=== PATIENT | male | born 1990 | race Caucasian/White ===

== ENCOUNTER 2022-10-30 18:16 | Emergency (ER) | payer SELFPAY ==
[2022-10-30] MEDS ORDERED: HYDROCODONE/APAP 5/325 MG TAB ONE (18:54)
[2022-10-30] MEDS ORDERED: DIAZEPAM 2 MG TABLET ONE (18:54)
--- NOTE | 2022-10-30 21:41 | RAD REPORT ---
EXAM DESCRIPTION: RAD - Lumbar Spine 3 Views - 10/30/2022 7:58 pm CLINICAL HISTORY: SMASH INJURY COMPARISON: No comparisons TECHNIQUE: Lumbar spine, 3 views. FINDINGS: Lumbar vertebral bodies are normal in height and alignment. No fracture or acute bony proc ess seen. No disc space narrowing. Mild facet degenerative changes. No other significant findings. IMPRESSION: No acute osseous abnormality mild facet degenerative changes.
--- NOTE | 2022-10-30 21:42 | RAD REPORT ---
EXAM DESCRIPTION: RAD - Hip Left 2 View - 10/30/2022 7:58 pm CLINICAL HISTORY: PAIN COMPARISON: No comparisons TECHNIQUE: Left hip, AP and frogleg views of the left hip. FINDINGS: There is no fracture or dislocation. No acute or destructive bony process seen. IMPRESSION: No acute findings of the left hip.
[2022-10-30] MEDS ORDERED: MORPHINE 4 MG/ML SYR ONE (22:12)
--- NOTE | 2022-10-30 22:51 | EDPHYS ---
Physician Documentation [facility] Name: Juan Thomas Age: 32 yrs Sex: Male : 1990 Arrival Date: 10/30/2022 Time: 18:16 Bed 20 Private MD: ED Physician Wing Jimenez HPI: 10/30 18:41 This 32 yrs old Male presents to ER via Ambulatory with complaints of Fall Injury, Leg snw Pain, Hip Pain. 18:41 Details of fall: The patient fell from an upright position, while running. Onset: The snw symptoms/episode began/occurred suddenly, at 12:00. Associated injuries: The patient sustained left hip, contusion, decreased range of motion, painful injury. The patient has not experienced similar symptoms in the past. The patient has not recently seen a physician, and does not have an established primary care provider. Historical: - Allergies: 18:40 No Known Allergies; nj1 - PMHx: 18:40 None; nj1 - PSHx: 18:40 None; nj1 - Immunization history:: Client reports receiving the 2nd dose of the Covid vaccine. - Social history:: Smoking status: Patient reports the use of cigarette tobacco products, smokes one pack cigarettes per day. ROS: 18:40 Constitutional: Negative for fever, chills, and weight loss, Eyes: Negative for injury, snw pain, redness, and discharge, ENT: Negative for injury, pain, and discharge, Neck: Negative for injury, pain, and swelling, Cardiovascular: Negative for chest pain, palpitations, and edema, Respiratory: Negative for shortness of breath, cough, wheezing, and pleuritic chest pain, Abdomen/GI: Negative for abdominal pain, nausea, vomiting, diarrhea, and constipation, Back: Negative for injury and pain, : Negative for injury, bleeding, discharge, and swelling, Skin: Negative for injury, rash, and discoloration, Neuro: Negative for headache, weakness, numbness, tingling, and seizure, Psych: Negative for depression, anxiety, suicide ideation, homicidal ideation, and hallucinations. 18:40 MS/extremity: Positive for injury or acute deformity, decreased range of motion, pain, tenderness, of the left hip. Exam: 18:39 Constitutional: This is a well developed, well nourished patient who is awake, alert, snw and in no acute distress. Head/Face: Normocephalic, atraumatic. Eyes: Pupils equal round and reactive to light, extra-ocular motions intact. Lids and lashes normal. Conjunctiva and sclera are non-icteric and not injected. Cornea within normal limits. Periorbital areas with no swelling, redness, or edema. ENT: Nares patent. No nasal discharge, no septal abnormalities noted. Tympanic membranes are normal and external auditory canals are clear. Oropharynx with no redness, swelling, or masses, exudates, or evidence of obstruction, uvula midline. Mucous membranes moist. Neck: Trachea midline, no thyromegaly or masses palpated, and no cervical lymphadenopathy. Supple, full range of motion without nuchal rigidity, or vertebral point tenderness. No Meningismus. Chest/axilla: Normal chest wall appearance and motion. Nontender with no deformity. No lesions are appreciated. Cardiovascular: Regular rate and rhythm with a normal S1 and S2. No gallops, murmurs, or rubs. Normal PMI, no JVD. No pulse deficits. Respiratory: Lungs have equal breath sounds bilaterally, clear to auscultation and percussion. No rales, rhonchi or wheezes noted. No increased work of breathing, no retractions or nasal flaring. Abdomen/GI: Soft, non-tender, with normal bowel sounds. No distension or tympany. No guarding or rebound. No evidence of tenderness throughout. Back: No spinal tenderness. No costovertebral tenderness. Full range of motion. Skin: Warm, dry with normal turgor. Normal color with no rashes, no lesions, and no evidence of cellulitis. Neuro: Awake and alert, GCS 15, oriented to person, place, time, and situation. Cranial nerves II-XII grossly intact. Motor strength 5/5 in all extremities. Sensory grossly intact. Cerebellar exam normal. Normal gait. Psych: Awake, alert, with orientation to person, place and time. Behavior, mood, and affect are within normal limits. 18:39 Musculoskeletal/extremity: Extremities: grossly normal except: noted in the left hip: decreased ROM, pain, ROM: limited active range of motion due to pain, left hip, limited passive range of motion due to pain, Circulation is intact in all extremities. Sensation intact. Vital Signs: 18:37 BP 142 / 112; Pulse 124; Resp 18; Temp 98.7; Pulse Ox 100% ; Weight 63.5 kg; Height 5 nj1 ft. 8 in. ; Pain 8/10; 21:11 BP 153 / 98; Pulse 100; Resp 20; Pulse Ox 99% ; ad6 22:00 BP 130 / 95; Pulse 93; Resp 20; Pulse Ox 100% ; ad6 23:00 BP 139 / 91; Pulse 87; Resp 19; Pulse Ox 98% ; ad6 18:37 Body Mass Index 21.29 (63.50 kg, 172.72 cm) nj1 18:37 Pain Scale: Adult nj1 MDM: 18:38 Patient medically screened. snw 10/31 08:17 Differential diagnosis: abrasion, contusion, fracture, sprain, strain. Data reviewed: snw vital signs, nurses notes, radiologic studies. I considered the following discharge prescriptions or medication management in the emergency department Medications were administered in the Emergency Department. See MAR. Counseling: I had a detailed discussion with the patient and/or guardian regarding the historical points, exam findings, and any diagnostic results supporting the discharge/admit diagnosis, the presence of at least one elevated blood pressure reading (>120/80) during this emergency department visit, radiology results, the need for outpatient follow up, for definitive care, to return to the emergency department if symptoms worsen or persist or if there are any questions or concerns that arise at home. Special discussion: I have referred the patient to see his PCP for further evaluation of high blood pressure. Based on the history and exam findings, there is no indication for further emergent testing or inpatient evaluation. I discussed with the patient/guardian the need to see the orthopedic surgeon for further evaluation of the symptoms. I discussed with the patient/guardian the need to see the primary care provider for further evaluation of the symptoms. 10/30 18:39 Order name: XRAY Hip LEFT 2 view; Complete Time: 22:25 snw 10/30 22:25 Interpretation: Report reviewed. cp 10/30 18:39 Order name: Lumbar Spine (3 Views) XRAY; Complete Time: 22:25 snw 10/30 20:14 Order name: Recheck VS; Complete Time: 21:33 snw Administered Medications: 10/30 18:47 Drug: HYDROcodone-acetaminophen PO 5 mg-325 mg 1 tabs Route: PO; nj1 18:47 Drug: Diazepam PO 2 mg Route: PO; nj1 22:12 Drug: morphine IM 4 mg Route: IM; Site: right deltoid; ad6 23:22 Drug: Lidoderm Topical Patch 5 % (700 mg/patch) 1 patches Route: Topical; Site: ad6 affected area; Disposition Summary: 10/30/22 22:50 Discharge Ordered Location: Home cp Condition: Stable cp Diagnosis - Fall on same level from slipping, tripping and stumbling with subsequent striking cp against object - Other bursitis of hip, left hip cp - Low back pain cp Followup: snw - With: Emergency Department - When: As needed - Reason: Worsening of condition Followup: snw - With: Private Physician - When: 2 - 3 days - Reason: Recheck today's complaints, Continuance of care, Re-evaluation by your physician Discharge Instructions: - Discharge Summary Sheet snw - Hip Bursitis snw - Fall Prevention in the Home, Adult snw - Heat Therapy snw - Acute Back Pain, Adult cp - Form - Excuse from Work, School, or Physical Activity cp Forms: - Medication Reconciliation Form cp - Thank You Letter cp - Antibiotic Education cp - Prescription Opioid Use cp - Patient Portal Instructions cp - Leadership Thank You Letter cp Prescriptions: - Cyclobenzaprine 10 mg Oral Tablet - take 1 tablet by ORAL route every 8 hours As needed; 30 tablet; Refills: 0, cp Product Selection Permitted - Diclofenac Sodium 75 mg Oral Tablet Sustained Release - take 1 tablet by ORAL route 2 times per day; 30 tablet; Refills: 0, Product cp Selection Permitted Signatures: Dispatcher [employer] Chichi Sim FNP-C FNP-Yossiw Garry Torrez PA PA cp Tashia Martinez, RN RN ad6 Luann Alejandra RN RN nj1
--- NOTE | 2022-10-30 22:51 | ER ---
Nurse's Notes [facility] Name: Juan Thomas Age: 32 yrs Sex: Male : 1990 Arrival Date: 10/30/2022 Time: 18:16 Bed 20 Private MD: Diagnosis: Fall on same level from slipping, tripping and stumbling with subsequent striking against object;Other bursitis of hip, left hip;Low back pain Presentation: 10/30 18:37 Chief complaint: [place]: [place]. Left hip/thigh nj1 pain. Coronavirus screen: Vaccine status: Patient reports receiving the 2nd dose of the covid vaccine. Ebola Screen: Patient denies travel to an Ebola-affected area in the 21 days before illness onset. Initial Sepsis Screen: Does the patient meet any 2 criteria? HR > 90 bpm. No. Patient's initial sepsis screen is negative. Does the patient have a suspected source of infection? No. Patient's initial sepsis screen is negative. Risk Assessment: Do you want to hurt yourself or someone else? Patient reports no desire to harm self or others. Onset of symptoms was October 30, 2022. 18:37 Method Of Arrival: Ambulatory [facility] 18:37 Acuity: RUSH 3 nj1 Historical: - Allergies: 18:40 No Known Allergies; nj1 - PMHx: 18:40 None; nj1 - PSHx: 18:40 None; nj1 - Immunization history:: Client reports receiving the 2nd dose of the Covid vaccine. - Social history:: Smoking status: Patient reports the use of cigarette tobacco products, smokes one pack cigarettes per day. Assessment: 21:15 General: Appears distressed, Behavior is cooperative, agitated, anxious, restless, ad6 Reports. Pain: Pain currently is 9 out of 10 on a pain scale. Quality of pain is described as sharp. Neuro: No deficits noted. Level of Consciousness is awake, alert, obeys commands, Oriented to person, place, time, situation. Cardiovascular: Pulses are all present. are 4+ in right radial artery, right dorsalis pedis artery, left radial artery and left dorsalis pedis artery. Respiratory: No deficits noted. Airway is patent Trachea midline Respiratory effort is even, unlabored. GI: No signs and/or symptoms were reported involving the gastrointestinal system. : No signs and/or symptoms were reported regarding the genitourinary system. Derm: Skin is intact. Musculoskeletal: Reports pain in left upper thigh. Injury Description: swelling to left upper thigh from fall. 22:15 Reassessment: No changes from previously documented assessment. Patient and/or family ad6 updated on plan of care and expected duration. Pain level reassessed. Patient is alert, oriented x 3, equal unlabored respirations, skin warm/dry/pink. pain medication given at this time. Reassessment:. 23:20 Reassessment: Patient and/or family updated on plan of care and expected duration. Pain ad6 level reassessed. Patient is alert, oriented x 3, equal unlabored respirations, skin warm/dry/pink. Vital Signs: 18:37 BP 142 / 112; Pulse 124; Resp 18; Temp 98.7; Pulse Ox 100% ; Weight 63.5 kg; Height 5 nj1 ft. 8 in. ; Pain 8/10; 21:11 BP 153 / 98; Pulse 100; Resp 20; Pulse Ox 99% ; ad6 22:00 BP 130 / 95; Pulse 93; Resp 20; Pulse Ox 100% ; ad6 23:00 BP 139 / 91; Pulse 87; Resp 19; Pulse Ox 98% ; ad6 18:37 Body Mass Index 21.29 (63.50 kg, 172.72 cm) nj1 18:37 Pain Scale: Adult [facility] ED Course: 18:17 Patient arrived in ED. im 18:26 Chichi Leiva FNP-C is PHCP. snw 18:26 Wing Jimenez MD is Attending Physician. snw 18:40 Triage completed. nj1 18:40 Arm band placed on right wrist. nj1 19:59 XRAY Hip LEFT 2 view In Process Unspecified. EDMS 19:59 Lumbar Spine (3 Views) XRAY In Process Unspecified. EDMS 21:36 PHCP role handed off by Chichi Leiva FNP-C cp 21:36 Garry Torrez PA is PHCP. cp Administered Medications: 18:47 Drug: HYDROcodone-acetaminophen PO 5 mg-325 mg 1 tabs Route: PO; nj1 18:47 Drug: Diazepam PO 2 mg Route: PO; nj1 22:12 Drug: morphine IM 4 mg Route: IM; Site: right deltoid; ad6 23:22 Drug: Lidoderm Topical Patch 5 % (700 mg/patch) 1 patches Route: Topical; Site: ad6 affected area; Outcome: 22:50 Discharge ordered by . alana 23:48 Patient left the ED. ad6 Signatures: Dispatcher [employer] EDMS Chichi Leiva FNP-C INFO SPECIALIST-Csnw Garry Torrez PA PA cp Del Toro, Anna, RN RN ad6 Luann Alejandra RN RN nj1 Vianca Montanez Corrections: (The following items were deleted from the chart) 23:35 23:27 Injury Description: swelling to left upper thigh from fall ad6 ad6 23:36 23:27 General: Appears distressed, Behavior is cooperative, agitated, anxious, ad6 restless, Reports ad6 23:36 23:27 Derm: Skin is intact, ad6 ad6 23:37 23:27 Neuro: No deficits noted. Level of Consciousness is awake, alert, obeys commands, ad6 Oriented to person, place, time, situation, ad6 23:39 23:27 Pain: Pain currently is 9 out of 10 on a pain scale. Quality of pain is described ad6 as sharp, ad6 23:39 23:27 Cardiovascular: Pulses are all present. are 4+ in right radial artery, right ad6 dorsalis pedis artery, left radial artery and left dorsalis pedis artery ad6 23:39 23:27 Respiratory: No deficits noted. Airway is patent Trachea midline Respiratory ad6 effort is even, unlabored, ad6 23:39 23:27 GI: No signs and/or symptoms were reported involving the gastrointestinal system. ad6 ad6 23:39 23:27 : No signs and/or symptoms were reported regarding the genitourinary system. ad6ad6 23:39 23:27 Musculoskeletal: Reports pain in left upper thigh ad6 ad6 23:39 23:27 Injury Description: swelling to left upper thigh from fall ad6 ad6 23:39 23:27 Derm: Skin is intact, ad6 ad6 23:39 23:27 General: Appears distressed, Behavior is cooperative, agitated, anxious, ad6 restless, Reports ad6 23:39 23:27 Neuro: No deficits noted. Level of Consciousness is awake, alert, obeys commands, ad6 Oriented to person, place, time, situation, ad6
[2022-10-30] MEDS ORDERED: LIDOCAINE 4% PATCH ONE (23:23)
[2022-10-30 23:53] VITALS: TEMP 98.7
[2022-10-30 23:58] VITALS: BP 139/91; O2SAT 98
== END 2022-10-30 23:48 | disposition home or self-care (01) ==
LOC: ER 18:16
DX: M70.72 Other bursitis of hip, left hip (principal); W01.10XA Fall on same level from slipping, tripping and stumbling with subsequent striking against unspecified object, initial encounter; Y93.02 Activity, running; Y92.9 Unspecified place or not applicable; Y99.8 Other external cause status; M54.50 Low back pain, unspecified; F17.210 Nicotine dependence, cigarettes, uncomplicated
CPT/HCPCS: 72100; 96372; 99284; J2001

== ENCOUNTER 2022-11-01 03:05 | Observation (INO) | payer SELFPAY ==
[2022-11-01] MEDS ORDERED: KETOROLAC 30 MG/ML INJ ONE (03:40)
[2022-11-01 04:27] LABS: Absolute Lymphocytes (CBC) 1.9 K/uL (0.7-4.9); Hematocrit 36.2 % (39.6-49.0); Lymphocytes % 18.5 % (15.3-44.8); MCV 92.8 fL (80-100); MPV 8.1 fL (7.6-11.3); Platelets 175 thou/uL (152-406)
[2022-11-01 04:42] LABS: Albumin 3.8 g/dL (3.4-5.0); Bilirubin Total 0.7 mg/dL (0.2-1.0); Potassium 3.7 mEq/L (3.5-5.1); Protein, Total 7.1 g/dL (6.4-8.2)
[2022-11-01] MEDS ORDERED: FENTANYL CITR 100 MCG/2 ML ONE ×2 (04:44→05:50)
--- NOTE | 2022-11-01 05:36 | EDPHYS ---
Physician Documentation [facility] Name: Juan Thomas Age: 32 yrs Sex: Male : 1990 Arrival Date: 11/01/2022 Time: 03:05 Bed 17 Private MD: ED Physician Fadi Sainz HPI: 11/01 06:30 This 32 yrs old Male presents to ER via Wheelchair with complaints of Hip Pain. rt 06:30 Patient presents to the ED with pain to the left hip, buttocks region that has been rt worsening since his visit in the ED about a day ago. Pain is aching in nature, severe in severity, does not radiate. Denies other injury. Does report a swelling to the left hip region.. Historical: - Allergies: 03:27 No Known Allergies; pf1 - PMHx: 03:27 None; pf1 - PSHx: 03:27 None; pf1 - Immunization history:: Adult Immunizations up to date, Client reports receiving the 2nd dose of the Covid vaccine, Last tetanus immunization: < 10 years ago Flu vaccine is not up to date. - Social history:: Smoking status: Patient reports the use of cigarette tobacco products, smokes one pack cigarettes per day. Patient uses alcohol, on a daily basis. Patient/guardian denies using street drugs. ROS: 06:30 Constitutional: Negative for fever, chills, and weight loss, Cardiovascular: Negative rt for chest pain, palpitations, and edema, Respiratory: Negative for shortness of breath, cough, wheezing, and pleuritic chest pain, Abdomen/GI: Negative for abdominal pain, nausea, vomiting, diarrhea, and constipation, Skin: Negative for injury, rash, and discoloration, Neuro: Negative for headache, weakness, numbness, tingling, and seizure, Psych: Negative for depression, anxiety, suicide ideation, homicidal ideation, and hallucinations. 06:30 MS/extremity: Positive for pain, swelling. Exam: 06:30 Constitutional: This is a well developed, well nourished patient who is awake, alert, rt and in no acute distress. Head/Face: Normocephalic, atraumatic. Chest/axilla: Normal chest wall appearance and motion. Nontender with no deformity. No lesions are appreciated. Cardiovascular: Regular rate and rhythm with a normal S1 and S2. No gallops, murmurs, or rubs. Normal PMI, no JVD. No pulse deficits. Respiratory: Lungs have equal breath sounds bilaterally, clear to auscultation and percussion. No rales, rhonchi or wheezes noted. No increased work of breathing, no retractions or nasal flaring. Skin: Warm, dry with normal turgor. Normal color with no rashes, no lesions, and no evidence of cellulitis. MS/ Extremity: Pulses equal, no cyanosis. Neurovascular intact. Full, normal range of motion. Neuro: Awake and alert, GCS 15, oriented to person, place, time, and situation. Cranial nerves II-XII grossly intact. Motor strength 5/5 in all extremities. Sensory grossly intact. Cerebellar exam normal. Normal gait. Psych: Awake, alert, with orientation to person, place and time. Behavior, mood, and affect are within normal limits. 06:30 Musculoskeletal/extremity: Hematoma noted to left hip, range of motion limited due to pain. Tenderness to this region, no other focal areas of tenderness, pulses, motor, sensation intact. Vital Signs: 03:10 BP 156 / 94; Pulse 105; Resp 18; Temp 98.5; Pulse Ox 100% on R/A; Weight 63.5 kg; pf1 Height 5 ft. 8 in. ; Pain 10/10; 03:52 BP 145 / 97; Pulse 105; Resp 20 S; Pulse Ox 98% on R/A; ha1 04:25 BP 146 / 80; Pulse 106; Resp 19 S; Pulse Ox 99% on R/A; ha1 05:00 BP 146 / 89; Pulse 98; Resp 18 S; Pulse Ox 99% on R/A; ha1 03:10 Body Mass Index 21.29 (63.50 kg, 172.72 cm) pf1 03:10 Pain Scale: Adult pf1 MDM: 03:17 Patient medically screened. rt 06:30 Differential diagnosis: Compartment syndrome, hematoma, fracture. Data reviewed: vital rt signs, nurses notes. Consideration of Admission/Observation Patient was admitted/placed on observation. Management of patient was discussed with the following: Flexible Machining System Machinist: Discussed with orthopedics on-call who recommends no operative management.. I considered the following discharge prescriptions or medication management in the emergency department Medications were administered in the Emergency Department. See MAR. Independent interpretation of the following test(s) in the Emergency Department CT Scan: My interpretation is Hematoma seen on my interpretation of the CT scan images. Test considered but Not performed: X-ray: CT obtained, repeat x-rays not needed. Counseling: I had a detailed discussion with the patient and/or guardian regarding the historical points, exam findings, and any diagnostic results supporting the discharge/admit diagnosis, lab results, radiology results, the need for further work-up and treatment in the hospital. Response to treatment: the patient's symptoms have mildly improved after treatment. 11/01 03:22 Order name: CBC with Diff; Complete Time: 05:02 rt 11/01 03:22 Order name: CMP; Complete Time: 05:02 rt 11/01 04:10 Order name: CPK rt 11/01 04:14 Order name: Creatine Phosphokinase; Complete Time: 05:02 EDMS 11/01 13:53 Order name: Basic Metabolic Panel EDMS 11/01 13:53 Order name: Creatine Phosphokinase EDMS 11/01 14:05 Order name: Hemoglobin EDMS 11/01 03:22 Order name: CT Pelvis w cont rt 11/01 12:08 Order name: MRI EDMS Administered Medications: 03:30 Drug: Ketorolac IVP 15 mg Route: IVP; Site: right antecubital; ha1 04:00 Follow up: Response: No adverse reaction; Pain is unchanged, physician notified ha1 04:30 Drug: fentaNYL (PF) IVP 100 mcg Route: IVP; Site: right antecubital; ha1 05:00 Follow up: Response: No adverse reaction; Pain is decreased; RASS: Alert and Calm (0) ha1 05:45 Drug: Gabapentin PO 300 mg Route: PO; pf1 06:00 Follow up: Response: No adverse reaction ha1 05:46 Drug: fentaNYL (PF) IVP 50 mcg Route: IVP; Site: right antecubital; pf1 06:00 Follow up: Response: No adverse reaction; Pain is decreased; RASS: Alert and Calm (0) ha1 Disposition Summary: 11/01/22 05:35 Hospitalization Ordered Hospitalization Status: Observation rt Provider: Andrea Funk rt Condition: Stable rt Problem: new rt Symptoms: have improved rt Bed/Room Type: Standard rt Location: [facility] ER HOLD(11/01/22 06:26) cg Room Assignment: ERHOLD-(11/01/22 06:26) cg Diagnosis - Intramuscular hematoma of left gluteus medius rt Discharge Instructions: - Discharge Summary Sheet eh3 Forms: - Work release form eh3 - Medication Reconciliation Form rt - SBAR form rt - Leadership Thank You Letter rt Signatures: Dispatcher [employer] Yessy Hayden RN RN cg Amy Garcia RN RN ha1 Fadi Sainz MD MD rt Lisa Siddiqi RN RN pf1 Corrections: (The following items were deleted from the chart) 06: 05:35 Telemetry/MedSurg (observation) rt cg 06:26 05:35 rt cg
--- NOTE | 2022-11-01 05:36 | ER ---
Nurse's Notes [facility] Name: Juan Thomas Age: 32 yrs Sex: Male : 1990 Arrival Date: 11/01/2022 Time: 03:05 Bed 17 Private MD: Diagnosis: Intramuscular hematoma of left gluteus medius Presentation: 11/01 03:10 Chief complaint: Patient states: left hip pain of 10,onset yesterday, S/P fall when pf1 running after his child, slipped and landed onto left hip. Patient stated was treated here yesterday, diagnosed with bursitis, discharged with Flexeril and diclofenac prescriptions, but did not get them filled. 03:10 Coronavirus screen: Vaccine status: Patient reports receiving the 2nd dose of the covid pf1 vaccine. pfizer x 2 doses Client denies travel out of the [place] in the last 14 days. At this time, the client does not indicate any symptoms associated with coronavirus-19. Ebola Screen: Patient negative for fever greater than or equal to 101.5 degrees Fahrenheit, and additional compatible Ebola Virus Disease symptoms. Initial Sepsis Screen: Does the patient meet any 2 criteria? HR > 90 bpm. No. Patient's initial sepsis screen is negative. Does the patient have a suspected source of infection? No. Patient's initial sepsis screen is negative. Risk Assessment: Do you want to hurt yourself or someone else? Patient reports no desire to harm self or others. 03:10 Method Of Arrival: Wheelchair pf1 03:10 Acuity: RUSH 3 pf1 03:10 Onset of symptoms was October 29, 2022. ha1 Historical: - Allergies: 03:27 No Known Allergies; pf1 - PMHx: 03:27 None; pf1 - PSHx: 03:27 None; pf1 - Immunization history:: Adult Immunizations up to date, Client reports receiving the 2nd dose of the Covid vaccine, Last tetanus immunization: < 10 years ago Flu vaccine is not up to date. - Social history:: Smoking status: Patient reports the use of cigarette tobacco products, smokes one pack cigarettes per day. Patient uses alcohol, on a daily basis. Patient/guardian denies using street drugs. Screenin:10 Abuse screen: Denies threats or abuse. Denies injuries from another. Nutritional ha1 screening: No deficits noted. Tuberculosis screening: No symptoms or risk factors identified. 09:00 [facility] ED Fall Risk Assessment (Adult) Score/Fall Risk Level 3 or more points = High ll1 Risk Oriented to surroundings, Maintained a safe environment, Educated pt \T\ family on fall prevention, incl call for assistance when getting out of bed, Assessed \T\ reinforced patient's understanding of fall precautions, Provided non-skid footwear, Hourly rounding (assess needs \T\ fall precautionary measures) done, Used ambulatory aids as needed (educated on \T\ assisted with), Utilized family, sitter, or virtual finishing wire sawyer as indicated. Assessment: 03:10 General: Appears uncomfortable, Behavior is agitated, anxious, restless. Pain: ha1 Complains of pain in left hip Pain does not radiate. Pain currently is 10 out of 10 on a pain scale. Quality of pain is described as throbbing, pulsating. Pain: Aggravated by increased activity. Neuro: Level of Consciousness is awake, alert, obeys commands, Oriented to person, place, time, situation. Cardiovascular: Patient's skin is warm and dry. Respiratory: Airway is patent Respiratory effort is even, unlabored, Respiratory pattern is regular, symmetrical. GI: No signs and/or symptoms were reported involving the gastrointestinal system. Musculoskeletal: Circulation, motion, and sensation intact. Range of motion: intact in all extremities. 04:10 Reassessment: Patient and/or family updated on plan of care and expected duration. Pain ha1 level reassessed. Patient is alert, oriented x 3, equal unlabored respirations, skin warm/dry/pink. pain 12/21. notified Dr. haji. 05:00 Reassessment: Patient and/or family updated on plan of care and expected duration. Pain ha1 level reassessed. Patient is alert, oriented x 3, equal unlabored respirations, skin warm/dry/pink. pain 10 Patient states feeling better. Patient states symptoms have improved. 06:00 Reassessment: Patient and/or family updated on plan of care and expected duration. Pain ha1 level reassessed. Patient is alert, oriented x 3, equal unlabored respirations, skin warm/dry/pink. Vital Signs: 03:10 BP 156 / 94; Pulse 105; Resp 18; Temp 98.5; Pulse Ox 100% on R/A; Weight 63.5 kg; pf1 Height 5 ft. 8 in. ; Pain 10/10; 03:52 BP 145 / 97; Pulse 105; Resp 20 S; Pulse Ox 98% on R/A; ha1 04:25 BP 146 / 80; Pulse 106; Resp 19 S; Pulse Ox 99% on R/A; ha1 05:00 BP 146 / 89; Pulse 98; Resp 18 S; Pulse Ox 99% on R/A; ha1 03:10 Body Mass Index 21.29 (63.50 kg, 172.72 cm) pf1 03:10 Pain Scale: Adult pf1 ED Course: 03:08 Patient arrived in ED. es 03:09 Fadi Sainz MD is Attending Physician. rt 03:10 Arm band placed on right wrist. ha1 03:10 Patient has correct armband on for positive identification. Placed in gown. Bed in low ha1 position. Call light in reach. Side rails up X2. 03:27 Triage completed. pf1 03:27 Amy Garcia RN is Primary Nurse. ha1 03:30 Inserted saline lock: 22 gauge in right antecubital area, using aseptic technique. ha1 Blood collected. 03:42 CMP Sent. ha1 03:42 CBC with Diff Sent. ha1 04:15 CT Pelvis w cont In Process Unspecified. EDMS 05:35 Andrea Funk MD is Hospitalizing Provider. rt 06:00 No provider procedures requiring assistance completed. ha1 06:00 Patient admitted, IV remains in place. ha1 06:00 Provided Education on: need for admit. ha1 Administered Medications: 03:30 Drug: Ketorolac IVP 15 mg Route: IVP; Site: right antecubital; ha1 04:00 Follow up: Response: No adverse reaction; Pain is unchanged, physician notified ha1 04:30 Drug: fentaNYL (PF) IVP 100 mcg Route: IVP; Site: right antecubital; ha1 05:00 Follow up: Response: No adverse reaction; Pain is decreased; RASS: Alert and Calm (0) ha1 05:45 Drug: Gabapentin PO 300 mg Route: PO; pf1 06:00 Follow up: Response: No adverse reaction ha1 05:46 Drug: fentaNYL (PF) IVP 50 mcg Route: IVP; Site: right antecubital; pf1 06:00 Follow up: Response: No adverse reaction; Pain is decreased; RASS: Alert and Calm (0) ha1 Medication: 03:56 VIS not applicable for this client. ha1 Outcome: 05:35 Decision to Hospitalize by Provider. rt 06:00 Admitted to ER Hold. Please see [facility] for further documentation. ha1 06:00 Condition: stable 06:00 Discharge instructions given to patient, Instructed on the need for admit, Demonstrated understanding of instructions. 16:47 AMA AMA form signed 3 16:47 Discharge instructions given to patient, Instructed on discharge instructions, follow up and referral plans. Demonstrated understanding of instructions, follow-up care. 16:48 Patient left the ED. 3 Signatures: Dispatcher [employer] Michelle Monsalve Lynsay, RN RN 1 Soledad Delcid RN RN 3 Amy Garcia RN RN ha1 Fadi Sainz MD MD rt Lisa Siddiqi RN RN pf1
[2022-11-01] MEDS ORDERED: GABAPENTIN 300 MG CAP ONE (05:50)
--- NOTE | 2022-11-01 06:04 | P.HP ---
Certification for Inpatient Patient admitted to: Observation With expected LOS: <2 Midnights Patient will require the following post-hospital care: None Practitioner: I am a practitioner with admitting privileges, knowledge of patient current condition, hospital course, and medical plan of care. Services: Services provided to patient in accordance with Admission requirements found in Title 42 Section 412.3 of the Code of Federal Regulations Patient History Date of Service: 11/01/22 Reason for admission: Hematoma History of Present Illness: Otherwise healthy 32-year-old male presents to the emergency permit with chief complaint of severe left hip pain. [place]. He was evaluated in the emergency department on 10/30/2022 at that time he had an x-ray of his left hip and lumbar spine x-ray of the left hip showed no acute findings lumbar spine x-ray showed no acute findings. He went home his pain continued to get worse at this time he is unable to stand or ambulate due to pain. He was evaluated again this morning in the emergency department a CT scan was performed of his pelvis which revealed a large hematoma in the left gluteal area his labs were significant for hemoglobin 10.6 medic at 36.2 CPK 1165 ED physician discussed case with orthopedics who stated this is likely nonoperative will need pain control, consider MRI for further evaluation. - Past Medical/Surgical History -: none -: none Psychosocial/ Personal History: Lives at home with family. - Family History Family History: Reviewed- Non-Contributory - Social History Smoking Status: Current every day smoker Alcohol use: No CD- Drugs: No Caffeine use: Yes Place of Residence: Home Review of Systems 10-point ROS is otherwise unremarkable Musculoskeletal: Leg Pain, Other (hip pain) Physical Examination - Physical Exam General: Alert, In no apparent distress, Oriented x3 HEENT: Atraumatic, PERRLA, Mucous membr. moist/pink, EOMI, Sclerae nonicteric Neck: Supple, 2+ carotid pulse no bruit, No LAD, Without JVD or thyroid abnormality Respiratory: Clear to auscultation bilaterally, Normal air movement Cardiovascular: Regular rate/rhythm, Normal S1 S2 Capillary refill: <2 Seconds Gastrointestinal: Normal bowel sounds, No tenderness Musculoskeletal: Other (Decrease active ROM left hip/knee) Integumentary: No rashes Neurological: Normal gait, Normal speech, Normal strength at 5/5 x4 extr, Normal tone, Normal affect Lymphatics: No axilla or inguinal lymphadenopathy - Studies Laboratory Data (last 24 hrs) 11/01/22 11/01/22 03:35 03:35 WBC 10.20 Hgb 12.6 L Hct 36.2 L Plt Count 175 Sodium 133 L Potassium 3.7 BUN 14 Creatinine 0.99 Glucose 106 Total Bilirubin 0.7 AST 49 H ALT 35 Alkaline Phosphatase 63 Assessment and Plan - Plan Assessment: Left gluteal hematoma-intractable pain Plan: Left gluteal hematoma-intractable pain PRN pain meds, will obtain MRI pelvis for further evaluation. Ortho consult. DVT PPX:SCD Code status:Full Discharge Plan: Home Plan to discharge in: 24 Hours - Advance Directives Does patient have a Living Will: No Does patient have a Durable POA for Healthcare: No - Code Status/Comfort Care Code Status Assessed: Yes (Full code) Critical Care: No Time Spent Managing Pts Care (In Minutes): 55
[2022-11-01] MEDS ORDERED: NA CHLORIDE 0.9% 1,000 ML IV SCH (06:27)
[2022-11-01] MEDS ORDERED: MORPHINE 2 MG/ML SYR IV PRN (06:27)
[2022-11-01] MEDS ORDERED: HYDROCODONE/APAP 7.5/325 MG TAB PO PRN (06:27)
[2022-11-01] MEDS ORDERED: ONDANSETRON 4 MG/2 ML VIAL IV PRN (06:27)
[2022-11-01 06:33] VITALS: BMI 23.3
[2022-11-01] MEDS ORDERED: NA CHLORIDE 0.9% 500 ML ONE (08:11)
[2022-11-01] MEDS ORDERED: MORPHINE 2 MG/ML SYR ONE ×2 (08:11→14:58)
[2022-11-01] MEDS ORDERED: ONDANSETRON 4 MG/2 ML VIAL ONE ×2 (08:11→14:58)
--- NOTE | 2022-11-01 12:07 | RAD REPORT ---
EXAM DESCRIPTION: MRI - Pelvis W/Wo Cont - 11/01/2022 11:18 am CLINICAL HISTORY: Left hip pain status post fall COMPARISON: November 01, 2020 CT TECHNIQUE: Axial, sagittal, and coronal magnetic images of the pelvis were obtained. 14 cc MultiHanc e administered intravenously FINDINGS: No fracture noted. No dislocation 14 x 12 x 4 centimeter hematoma left gluteus medius muscle. Tendon tear within the insertion with the greater trochanter left femur is present. 8 x 2 x 6 centimeter hematoma left adductor muscles medial compartment of the thigh. IMPRESSION: 14 centimeter left gluteus medius muscle hematoma. Tendon tear within the insertion with the greater trochanter left femur 8 centimeter hematoma left adductor muscles
[2022-11-01 12:30] VITALS: TEMP 98.5
--- NOTE | 2022-11-01 13:25 | RAD REPORT ---
EXAM DESCRIPTION: CT - Pelvis W/Cont - 11/01/2022 6:41 am CLINICAL HISTORY: Hip pain, rule out thigh hematoma TECHNIQUE: Contiguous axial images obtained through the pelvis following the uneventful administrati on of IV contrast. reformatted images were provided. This exam was performed according to our departmental dose-optimization program, which includes autom ated exposure control, adjustment of the mA and/or kV according to patient size and/or use of iterati ve reconstruction technique. COMPARISON: None available for comparison. FINDINGS: No acute pelvic or hip fracture. Benign lucent lesion in the right femoral head with sclerotic borders, likely incidental finding. Prominent heterogeneous edema involving the left gluteal muscles, and extending to the proximal left thigh, predominantly along the left gluteal medius, and tensor fascia stacey, most consistent with intr amuscular hematoma. Muscle tear or disruption cannot be excluded. Consider further evaluation with MRI. IMPRESSION: 1. No acute pelvic or hip fracture. 2. Prominent heterogeneous edema involving the left gluteal muscles, and extending to the proximal left thigh, predominantly along the left gluteal medius, and tensor fascia stacey, most consistent with intramuscular hematoma. Muscle tear or disruption cannot be excluded. Consider further evaluation [facility] MRI. Electronically signed by: Wing Rajput MD 11/01/2022 4:55 AM CDT Due to temporary technical issues with the PACS/Fluency reporting system, reports are being signed by the in house radiologist without review as a courtesy to ensure prompt reporting. The interpreting r adiologist is fully responsible for the content of the report.
[2022-11-01 13:52] LABS: Potassium 3.9 mEq/L (3.5-5.1)
[2022-11-01 17:11] VITALS: O2SAT 99
[2022-11-01 17:13] VITALS: BP 146/89
== END 2022-11-01 16:45 | disposition left against medical advice (07) ==
LOC: ER 03:05 → ERHOLD 05:45
PROVIDERS: ADMIT Hospitalist; ATTEND Hospitalist
DX: S30.0XXA Contusion of lower back and pelvis, initial encounter (principal); W01.0XXA Fall on same level from slipping, tripping and stumbling without subsequent striking against object, initial encounter; Y93.89 Activity, other specified; Y92.89 Other specified places as the place of occurrence of the external cause; Z53.29 Procedure and treatment not carried out because of patient's decision for other reasons
CPT/HCPCS: 36415; 72193; 72197; 80048; 80053; 82550; 85018; 85025; 96374; 96375; 99285; A9577; G0378; J2270; J2405; J3010; J7040; Q9967

== ENCOUNTER 2023-07-14 02:28 | Emergency (ER) | payer SELFPAY ==
[2023-07-14] MEDS ORDERED: TDAP (DIPHTH,PERTUSS(ACELL),TET VAC) 0.5 ML VIAL IMVAC ONE (02:53)
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
[2023-07-14 03:45] VITALS: BP 160/125; TEMP 98.1; O2SAT 98
== END 2023-07-14 03:23 | disposition home or self-care (01) ==
LOC: ER 02:28
DX: S00.83XA Contusion of other part of head, initial encounter (principal); F10.129 Alcohol abuse with intoxication, unspecified; F12.929 Cannabis use, unspecified with intoxication, unspecified; Y04.8XXA Assault by other bodily force, initial encounter
CPT/HCPCS: 96372; 99284